=== PATIENT | female | born 1940 | race Caucasian/White ===

== ENCOUNTER 2019-04-11 12:12 | Emergency (ER) | payer MEDICARE, OTHER, SELFPAY ==
[2019-04-11 12:13] VITALS: BP 144/79; PULSE 78; RESP 18; TEMP 36.9; O2SAT 97; BMI 31.6
--- NOTE | 2019-04-11 12:30 | EKG12_ITS ---
Test Reason : Blood Pressure : / mmHG Vent. Rate : 077 BPM Atrial Rate : 077 BPM P-R Int : 174 ms QRS Dur : 094 ms QT Int : 374 ms P-R-T Axes : 044 -18 034 degrees QTc Int : 423 ms Normal sinus rhythm Poor R wave progression Confirmed by ALEXIA SCOTT, GEE ([id number]), web content editor IRAM FRANKLIN ([id number]) on 04/14/2019 10:01:34 AM Referred By: SAVANNA Confirmed By:GEE HALE MD
--- NOTE | 2019-04-11 12:31 | ED.DCSUM_ITS ---
History of Present Illness Chief Complaint: Cellulitis Detail of Chief Complaint: Body aches Informant: Patient Onset: Days Narrative: Patient presents from urgent care. She reports having a heart cath on March 26 in [facility]. She states he had first on an echo and saw some odd shadowing. Everything was clear on her heart cath. Heart cath site on her right wrist is clean and has not caused any problems. On the she got a flu shot. On the , , and she had flulike symptoms. She then noted for the past week that her right second toe has been red and swollen. For the past 3 days she has had generalized body aches. She has not noticed a fever but at urgent care they documented her temperature at 100.6. Patient's sister and [id number] are physicians in [facility]. They along with the urgent care physician are concerned for possible endocarditis and sent her to the emergency room for an echo. Past Medical History - Allergies and Home Meds Allergies/Adverse Reactions: Allergies lisinopril Allergy (Verified 04/11/19 12:13) Other COUGH Primary Care Physician: Mayur Gonzalez MD [Primary Care Provider] - Prior records reviewed: Yes Past Medical History: - - Reviewed Lives: Spouse/ Significant Other Smoking Status: Never smoker Review of Systems General: Reports: Malaise. Denies: Chills, Fever Eyes: Denies: Visual changes - bilaterally ENT: Denies: Bilateral ear pain Cardiovascular: Denies: Chest pain, Palpitations Respiratory: Denies: Dyspnea, Cough Gastrointestinal: Denies: Abdominal pain, Nausea, Vomiting, Diarrhea Genitourinary: Denies: Dysuria Musculoskeletal: Reports: Myalgias Skin: Reports: Rash Neurological: Reports: Headache Physical Exam Vital Signs/Narrative: Vital Signs Temp Pulse Resp BP Pulse Ox 04/11/19 12:13 98.5 F 78 18 144/79 H 97 Inital Vital Signs reviewed: Yes General: Well nourished, Well developed Head: Normocephalic ENT: Moist mucous membranes Neck: Supple Cardiovascular: Regular rate, Regular rhythm, No murmurs Respiratory: No distress, CTA bilaterally Abdomen: Soft, Nontender, Normal bowel sounds Extremities: - - Mild erythema and mild edema to the second toe. No open wounds. Neurological: Alert, Oriented x3, Normal Strength, Normal Sensation Psychological: Normal affect Diagnostic/Tx/Re-eval Impressions Chest X-Ray 04/11/19 13:43 IMPRESSION: Patchy left lower lobe infiltrate. Electronically Signed: Jd Curry, at 14:05 EDT , Service support , 04/11/19 13:43 Chest PA and Lateral [RAD] Stat Laboratory Results 04/11/19 04/11/19 12:40 12:40 WBC 11.5 H RBC 4.62 Hgb 13.3 Hct 40.8 MCV 88.3 MCH 28.8 MCHC 32.6 RDW Std Deviation 44.0 H RDW Coeff of Destinee 13.5 Plt Count 312 MPV 10.2 Immature Gran % (Auto) 0.600 Neut % (Auto) 73.8 H Lymph % (Auto) 15.1 L [place] % (Auto) 9.6 Eos % (Auto) 0.4 Baso % (Auto) 0.5 Absolute Neuts (auto) 8.5 H Absolute Lymphs (auto) 1.74 Nucleated RBC % 0 ESR 37 H Sodium 135 L Potassium 4.0 Chloride 100 Carbon Dioxide 27.0 Anion Gap 8 BUN 24 H Creatinine 1.11 H Estim Creat Clear Calc 38.80 Est GFR (MDRD) Af Amer 61 Est GFR (MDRD) Non-Af 51 L BUN/Creatinine Ratio 21.6 H Glucose 107 H Calcium 9.3 C-React Prot Ext Range 156.00 H - EKG Initial EKG Interpretation: Sinus Rhythm - Sinus at 77 with no acute ischemia. Normal QTC. - Medical Decision Making Patient was discussed with cardiology shortly after her arrival. We were able to get an echocardiogram in the emergency room. This is grossly unremarkable. No valvular lesions are noted. Patient does have evidence of pneumonia on chest x-ray. She will be treated with a course of Levaquin, first dose given here. The right second toe, while mildly swollen and slightly erythematous is not warm to the touch or painful. Patient will continue full course of anti-medics. She will be given prescription for naproxen to help with body aches. She will be given one-time dose of Toradol IV here. She is to follow-up with her primary care physician or return for worsening symptoms or concerns. ED Disposition - Plan for ED Patient: Disposition: Home or Assisted Living Diagnosis: Pneumonia Instructions: PNEUMONIA (Adult) Prescriptions: Levofloxacin [Levaquin] 750 mg PO DAILY #4 tablet Naproxen [Naprosyn] 500 mg PO BID PRN PRN #20 tablet PRN Reason: Pain Score 1-10/10 Referrals: Mayur Gonzalez MD [Primary Care Provider] - 5-7 Days
[2019-04-11 13:09] LABS: Absolute Lymphocyte Count 1.74 X10^3/uL (0.83-4.51); Absolute Neutrophil Count 8.5 X10^3/uL (2.0-7.7); Basophil# 0.06 X10^3/uL; Basophil% 0.5 % (0-1); Eosinophil# 0.05 X10^3/uL; Eosinophils% 0.4 % (0-5); Hematocrit 40.8 % (37-47); Hemoglobin 13.3 g/dL (12.0-15.0); Lymphocyte # 1.74 X10^3/ul (4.0); Lymphocyte % 15.1 % (19-41); Mean Corp Hgb Conc 32.6 g/dL (32-36); Mean Corpuscular Hgb 28.8 pg (27.0-32.0); Mean Corpuscular Volume 88.3 fL (81-99); Mean Platelet Vol. 10.2 fl (6.2-12.0); Monocyte% 9.6 % (0-10); NRBC Flagged by Analyzer 0 % (0-5); Neutrophil # 8.49 X10^3/uL (2.7-7.7); Neutrophil % 73.8 % (47-70); Platelet Count 312 K/mm3 (150-450); RBC Distribution Width CV 13.5 % (11.6-14.6); Red Blood Count 4.62 M/mm3 (4.2-5.4); White Blood Count 11.5 K/mm3 (4.4-11.0)
--- NOTE | 2019-04-11 13:11 | ECHOD_ITS ---
Reason For Study: dysrhythmia Procedure This was a 2D Doppler, Color Flow transthoracic echocardiogram. The study was technically difficult. Exam performed portable in ED. Left Ventricle Normal LV size. Left ventricular systolic function is normal. The estimated ejection fraction is 60 %. No evidence for diastolic dysfunction. No regional wall motion abnormalities noted. Right Ventricle Normal RV size. Normal systolic function. Atria The left atrium is mildly enlarged. Normal right atrium. No doppler evidence for ASD. Mitral Valve There is no mitral annular calcification. Normal mitral valve. Mild (1+) mitral valve insufficiency. Tricuspid Valve Normal tricuspid valve. Trivial tricuspid valve insufficiency. Right ventricular systolic pressure estimated to be 30 mmHg. Aortic Valve Trisinus/trileaflet aortic valve. Normal aortic valve. Pulmonic Valve The pulmonic valve is not well visualized. Trivial pulmonic valve insufficiency. Great Vessels Mildly dilated aortic root. Pericardium/Pleural No pericardial effusion. MMode/2D Measurements & Calculations LVIDd: 5.3 cm IVSd: 1.0 cm Ao root diam: 4.1 cm LVIDs: 3.4 cm LVPWd: 0.95 cm RVDd: 2.7 cm FS: 36.4 % LAV(MOD-bp): 57.6 ml LA A4 area: 17.9 cm2 LA dimension(2D): 4.5 cm LAV(MOD-bp) Indexed: 29.8 ml/m2 LAV(MOD-sp2): 54.4 ml LAV(MOD-sp4): 54.3 ml RA A4 area: 16.1 cm2 Time Measurements MV dec time: 0.19 sec Doppler Measurements & Calculations MV E max [place]: 63.5 cm/sec Lat Peak E' Wellington: 9.1 cm/sec Med Peak E' [place]: 5.3 cm/sec MV A max [place]: 82.5 cm/sec E/E' lat: 7.0 E/E' med: 11.9 MV E/A: 0.77 Ao V2 max: 123.6 cm/sec LV V1 max: 124.6 cm/sec PA V2 max: 98.8 cm/sec Ao max P.1 mmHg LV V1 max P.2 mmHg TR max wellington: 261.1 cm/sec TR max P.3 mmHg Interpretation Summary The study was technically difficult. Left ventricular systolic function is normal. The estimated ejection fraction is 60 %. The left atrium is mildly enlarged. Mild (1+) mitral valve insufficiency. Trivial tricuspid valve insufficiency. Trivial pulmonic valve insufficiency. Mildly dilated aortic root. Right ventricular systolic pressure estimated to be 30 mmHg. No evidence for diastolic dysfunction. Ordering Physician: Ame Busby Referring Physician: Mayur Gonzalez Performed By: Robbin, Lelo, RDCS, RVT
[2019-04-11 13:15] LABS: Erythrocyte Sedimentation Rate 37 mm/hr (0-30)
[2019-04-11 13:18] LABS: Anion Gap 8 (5-15); BUN 24 mg/dL (7-18); BUN/Creat Ratio 21.6 RATIO (10-20); Calcium,Total 9.3 mg/dL (8.5-10.1); Chloride 100 mmol/L (98-107); Creatinine, Serum 1.11 mg/dL (0.55-1.02); EST Glomerular Filtration Rate 51 mL/min (>60); Est Glom Filt Rate - Afr Amer 61 mL/min (>60); Glucose 107 mg/dL (74-106); Sodium Level 135 mmol/L (136-145)
[2019-04-11 13:31] VITALS: BP 123/79; PULSE 79; RESP 16; TEMP 36.4; O2SAT 93
[2019-04-11] MEDS: 0.9% Normal Saline 1,000 ML 150 ML IV (13:33)
--- NOTE | 2019-04-11 13:43 | RAD_ITS ---
STUDY: X-RAY CHEST REASON FOR EXAM: Female, 78 years old. Fever. TECHNIQUE: PA and lateral views of the chest. COMPARISON: None. FINDINGS: EKG electrodes are seen. Patchy left lower lobe infiltrate. Mild increased markings at the right lung base. Normal size heart. Normal mediastinum and brianne. Normal visualized pulmonary arteries. There is atherosclerotic tortuosity of the aortic arch and descending thoracic aorta. There are diffuse degenerative changes of the visualized thoracic spine. Normal visualized ribs, clavicles, and shoulders. There is no demonstrated abnormality of the visualized soft tissue structures of the upper abdomen. RAD/Chest PA and Lateral IMPRESSION: Patchy left lower lobe infiltrate. Electronically Signed: Jd Curry, at 14:05 EDT , Service support ,
[2019-04-11 14:34] VITALS: BP 121/76; PULSE 81; RESP 18; O2SAT 94
[2019-04-11] MEDS: levoFLOXacin 750 MG Tablet PO (14:50)
[2019-04-11] MEDS: Ketorolac 30 MG/ML Syringe IV (16:07)
[2019-04-11 16:12] VITALS: BP 100/58; PULSE 70; RESP 18; O2SAT 99
== END 2019-04-11 16:13 | disposition home or self-care (01) ==
PROVIDERS: Emergency Provider Emergency Medicine; Family Provider Family Medicine; PCP Family Medicine
DX: J18.9 Pneumonia, unspecified organism (principal)
CPT/HCPCS: 71046; 80048; 85025; 85652; 86140; 87040; 93005; 93306; 96361; 96374; 99285; J7030; A4216

== ENCOUNTER 2019-11-24 11:32 | Emergency (ER) | payer MEDICARE, OTHER, SELFPAY ==
[2019-11-24 11:34] VITALS: BP 153/88; PULSE 61; RESP 17; TEMP 36.8; O2SAT 95; BMI 31.8
--- NOTE | 2019-11-24 11:48 | VDLE_ITS ---
Reason For Study: LLE PAIN RIGHT LEFT CFV is compressible, spontaneous, phasic, GSV is normal. competent and demonstrates normal CFV is compressible, spontaneous, phasic, augmentation. competent, and demonstrates normal Procedure augmentation. Exam performed portable in ED. FV is compressible, spontaneous, phasic, The study was technically difficult. competent and demonstrates normal A preliminary report was called and/or faxed augmentation. to ED. POP V is compressible, spontaneous, phasic, competent and demonstrates normal augmentation. T/P Trunk is compressible. PTV is compressible. LT PerV is compressible. PT unable to tolerate compression of distal femoral vein. Bloodflow was noted by color doppler and pulsed doppler. Interpretation Summary There is no evidence of left lower extremity deep vein thrombosis. Left great saphenous vein appears patent and compressible segmentally. See limitations of the examination. Right common femoral vein is patent and compressible Ordering Physician: Kurt Veronica Referring Physician: Mayur Gonzalez Performed By: Lelo Siegel, MYNOR, RVT
--- NOTE | 2019-11-24 12:15 | ED.DCSUM_ITS ---
History of Present Illness Chief Complaint: Lower Extremity Injury Narrative: Patient presenting secondary to left leg pain. Patient reports that the end of October she was down in [place], she bent over and started to notice a sudden pain in her calf. This is been a persistent pain throughout the last couple of weeks that seems to be elevating up her leg. Patient reports that she had a distant history of a partial Achilles tendon rupture in the same leg, she but she reports that that did not feel similar to this injury. Patient states that she got in with orthopedics today and had bilateral knee x-rays, but was concerned about the possibility of DVT. She is concerned about this because she recently traveled from [place] via car. She denies any history of DVT or PE. She does report that the pain is worse with palpation and is in her calf, behind her knee, and somewhat in her thigh. No fevers. No chest pain or shortness of breath. Review of systems otherwise negative. Past Medical History - Allergies and Home Meds Allergies/Adverse Reactions: Allergies lisinopril Allergy (Verified 11/24/19 11:32) Other COUGH Primary Care Physician: Mayur Gonzalez MD [NON-STAFF] - Prior records reviewed: Yes Past Medical History: - - Hypertension Smoking Status: Never smoker Review of Systems All systems negative except as indicated General: Denies: Chills, Fever, Sweats Eyes: Denies: Visual changes - bilaterally, Diplopia ENT: Denies: Rhinorrhea, Sore throat Cardiovascular: Denies: Chest pain, Palpitations Respiratory: Denies: Dyspnea, Cough, Dyspnea on exertion Gastrointestinal: Denies: Abdominal pain, Nausea, Vomiting, Diarrhea, Melena, Hematochezia Genitourinary: Denies: Dysuria, Hematuria, Frequency Musculoskeletal: Reports: Extremity Pain Skin: Denies: Rash, Wounds Neurological: Denies: Headache, Weakness, Numbness Psych: Denies: Depression Endocrine: Denies: Polyuria Hematologic: Denies: Easy bruising Allergy: Denies: Uticaria, Swelling of the mouth Physical Exam Vital Signs/Narrative: Vital Signs Temp Pulse Resp BP Pulse Ox 11/24/19 11:34 98.2 F 61 17 153/88 H 95 - Extremity Exam Left Femur: - - Examination of the patient's left leg shows normal range of motion of the hip knee ankle and foot. There is some increased spider veins noted in the patient's left leg when compared to the right. Patient complains of pain in the calf, popliteal area, as well as diffusely throughout the thigh. No palpable cord. No appreciable swelling. No evidence of skin changes or erythema. General: Well nourished, Well developed Head: Normocephalic, Atraumatic Eyes: EOMI ENT: No Trauma Neck: Full ROM Cardiovascular: Regular rate, Regular rhythm, No murmurs Respiratory: No distress Skin: Normal color, No rash Neurological: Alert, Oriented x3, Normal Strength, Normal Sensation Psychological: Normal affect Diagnostic/Tx/Re-eval - Medical Decision Making Patient presented secondary to left leg pain. Duplex ultrasound was obtained which was found to be negative for DVT. Patient had x-rays earlier today which showed arthritis in the knees. That started a likely cause of her pain. She was recommended conservative management measures. ED Disposition - Plan for ED Patient: Disposition: Home or Assisted Living Diagnosis: Arthritis of left knee Instructions: ED Osteoarthritis Referrals: Mayur Gonzalez MD [NON-STAFF] - As Needed
== END 2019-11-24 13:25 | disposition home or self-care (01) ==
PROVIDERS: Emergency Provider Emergency Medicine; PCP Family Medicine
DX: M17.12 Unilateral primary osteoarthritis, left knee (principal); I10 Essential (primary) hypertension
CPT/HCPCS: 93971; 99282

== ENCOUNTER 2021-10-10 10:32 | Emergency (ER) | payer MEDICARE, OTHER, SELFPAY ==
[2021-10-10 10:33] VITALS: BP 168/104; PULSE 52; RESP 18; TEMP 35.9; O2SAT 97; BMI 30.4
--- NOTE | 2021-10-10 10:46 | CT_ITS ---
STUDY: CT BRAIN WITHOUT CONTRAST REASON FOR EXAM: Female, 81 years old. Head injury due to a fall. RADIATION DOSAGE (If Supplied By Facility): CTDIvol = ( 44.99 ) mGy, DLP = ( 779.24 ) mGycm TECHNIQUE: Transaxial CT imaging of the brain was performed without administration of intravenous contrast material. Individualized dose optimization techniques were used for this CT. COMPARISON: No relevant priors. FINDINGS: Normal soft tissue structures. Normal calvarium. There is mild cerebral atrophy with widening of the extra-axial spaces and ventricular dilatation. There are areas of decreased attenuation within the white matter tracts of the supratentorial brain, consistent with microvascular disease changes. Normal basal ganglia and thalami. Normal brainstem. Normal cerebellum. There is no intracranial hemorrhage. There are no findings of an acute ischemic infarction. Small mucosal polyp or cyst along the inferior medial aspect of the right maxillary sinus. CT/Brain/Head without Contrast IMPRESSION: Normal unenhanced CT scan of the brain. Electronically Signed: Jd Curry MD at 11:50 EDT ,
--- NOTE | 2021-10-10 10:47 | EDS_ITS ---
HPI History of Present Illness Chief Complaint: Fall Informant: patient and spouse/S.O. Narrative Narrative: 81-year-old female presents to the emergency department for evaluation of head injury. Patient states that she fell about 10 days ago resulted in a scab to her scalp. States her leg was a little bit sore but she had been doing well. She did not seek evaluation. Last night she was changing the drip arana on the [place]. She lost her footing and fell backwards striking her back on a rock in her head on a post. She did not lose consciousness but notes that she was confused and had memory loss for about an hour. She has not had any vomiting. She denies being on a blood thinner. She notes that her back is sore but does not have any difficulty breathing. No neck pain. [facility] Medical History (Updated 10/10/21 @ 10:[address] Emil Wadsworth DO) Hypertension Home Medications calcium carbonate-vitamin D3 1 ea PO DAILY 04/11/19 [History Last Taken Unknown] cholecalciferol (vitamin D3) 2,000 unit PO DAILY 04/11/19 [History Last Taken Unknown] metoprolol tartrate 25 mg PO BID 04/11/19 [History Last Taken Unknown] omega 0-ovq-gyk-fish oil 1 ea PO DAILY 04/11/19 [History Last Taken Unknown] triamterene-hydrochlorothiazid 1 ea PO DAILY 04/11/19 [History Last Taken Unknown] prednisone 5 mg PO DAILY 10/10/21 [History Last Taken Unknown] Allergy/AdvReac Type Severity Reaction Status Date / Time lisinopril Allergy Other Verified 10/10/21 10:36 Social History (Updated 10/10/21 @ 10:[address] Emil Wadsworth DO) household members: spouse Smoking Status: Never smoker ROS ROS ED Constitutional Constitutional ED: Denies chills or weight loss Eyes Eyes: Denies change in vision or diplopia ENT ENT ED: Denies ear pain, rhinorrhea or sore throat Cardiovascular Cardiovascular: Denies chest pain, orthopnea, palpitations or racing heartbeat Respiratory/Chest Respiratory/Chest: Denies cough, dyspnea or orthopnea Gastrointestinal Gastrointestinal: Denies abdominal pain, diarrhea, nausea or vomiting Genitourinary Genitourinary ED: Denies dysuria, hematuria or urinary frequency Musculoskeletal Musculoskeletal: Reports back pain and other; Denies arthralgias, myalgias or neck pain Integumentary Denies abscess or rash Neurologic Neurologic: Reports headache(s); Denies weakness Psychiatric Psychiatric: Denies anxiety, depression, suicidal ideation or suicidal thoughts Endocrine Endocrinology: Denies polydipsia, polyphagia or polyuria Allergic/Immunologic Allergic/Immunologic ED: Denies mouth swelling, tongue swelling or urticaria EXAM Physical Exam Const Vital Signs: 10/10/21 10:33 10/10/21 10:41 Temperature 96.7 F L Temperature Source Temporal Pulse Rate 52 L Respiratory Rate 18 Respiratory Effort Normal Non-Labored Respiratory Depth Normal Respiratory Pattern Normal Blood Pressure 168/104 H Blood Pressure Mean 125 Pulse Ox 97 Oxygen Delivery Method Room Air Room Air Positive well nourished and well developed General Appearance ED: well developed HEENT Reports normocephalic, head/scalp atraumatic, TM's clear and moist mucous membranes HEENT Narrative: There is a small area of hematoma and ecchymosis in the high occiput. There is a healing abrasion in the left parieto-occipital scalp. trauma Tympanic Membrane ED: Yes TM's clear Eyes PERRL and EOMs intact bilaterally Neck no lymphadenopathy, supple and no JVD Resp normal respiratory effort and clear to auscultation bilaterally Cardio regular rate, regular rhythm and no murmurs GI normal to inspection, nondistended, normoactive bowel sounds and non-tender Palpation: soft Back/Spine no CVA tenderness and normal ROM Extremity normal to inspection General Extremety ED: Negative for edema General Extremity: Negative for edema Neuro oriented x3 and CN's II-XII intact bilaterally Sensorium / Orientation: alert Motor Exam: strength 5/5 throughout Psych mental status grossly normal Mood & Affect: Negative for depressed or tearful Skin no rashes or lesions noted MDM MDM MDM Narrative Medical decision making narrative: CT of the brain was obtained and is negative for hemorrhage or fracture. Patient be discharged home with supportive care return if worsening or concerns Radiography Diagnostic Testing: Clinical Impression(s) from Imaging Studies Brain CT 10/10/21 10:46 IMPRESSION: Normal unenhanced CT scan of the brain. Electronically Signed: Jd Curry MD at 11:50 EDT , Discharge Plan Triage Chief Complaint: Fall ED Provider: Emil Wadsworth Dx/Rx/DC Orders Clinical Impression: Concussion, Hematoma of occipital region of scalp Instructions: ED Head Injury (Adult) Prescriptions: No Action triamterene-hydrochlorothiazid 1 EACH tablet 1 ea PO DAILY RF: 0 metoprolol tartrate 25 MG tablet 25 mg PO BID RF: 0 cholecalciferol (vitamin D3) 1,000 UNIT tablet 2,000 unit PO DAILY RF: 0 omega 5-rup-npk-fish oil 1 EACH capsule 1 ea PO DAILY RF: 0 calcium carbonate-vitamin D3 1 EACH tablet 1 ea PO DAILY RF: 0 prednisone 5 mg Tablet 5 mg PO DAILY RF: 0 Primary Care Provider: Mayur Abad Referrals: Mayur Abad MD [Primary Care Provider] - As Needed Disposition Disposition: Home, Self Care
[2021-10-10 12:02] VITALS: BP 124/69; PULSE 72; RESP 15; O2SAT 97
== END 2021-10-10 12:04 | disposition home or self-care (01) ==
PROVIDERS: Emergency Provider Emergency Medicine; PCP Family Medicine; Visit Provider Emergency Medicine
DX: S06.0X0A Concussion without loss of consciousness, initial encounter (principal); S00.03XA Contusion of scalp, initial encounter; I10 Essential (primary) hypertension; Z79.899 Other long term (current) drug therapy; W19.XXXA Unspecified fall, initial encounter
CPT/HCPCS: 70450; 99282